=== PATIENT | female | born 1975 | race Caucasian/White ===

== ENCOUNTER 2017-06-28 14:21 | Day surgery (SDC) | payer OTHER ==
[~2017-06-28] VITALS: Ht 162.6 cm; Wt 105.3 kg
[2017-06-28 14:50] VITALS: PULSE 85; TEMP 97.9
[2017-06-28] MEDS ORDERED: AMBIEN 10MG10 MG PO (15:14)
[2017-06-28] MEDS ORDERED: TYLENOL 500MG500 MG PO (15:15)
[2017-06-28] MEDS ORDERED: OMNICEF 300MG300 MG PO (15:15)
[2017-06-28 18:46] VITALS: BP 136/90; PULSE 65; TEMP 98
[2017-06-28 19:00] VITALS: BP 128/89; PULSE 80; TEMP 98.1
[2017-06-28 19:15] VITALS: BP 131/90; PULSE 71; TEMP 97.9
[2017-06-28 19:54] VITALS: BP 147/105; PULSE 77; TEMP 98.2
== END 2017-06-28 20:31 | disposition home or self-care (01) ==
LOC: SDCO 14:21 → MEDICAL 19:36 → SDCO 20:31
DX: N20.0 Calculus of kidney (principal); G47.33 Obstructive sleep apnea (adult) (pediatric); I10 Essential (primary) hypertension; I42.9 Cardiomyopathy, unspecified; M19.90 Unspecified osteoarthritis, unspecified site; D64.9 Anemia, unspecified; N39.0 Urinary tract infection, site not specified; Z86.73 Personal history of transient ischemic attack (TIA), and cerebral infarction without residual deficits; K21.9 Gastro-esophageal reflux disease without esophagitis; Z80.8 Family history of malignant neoplasm of other organs or systems; Z88.5 Allergy status to narcotic agent; Z98.84 Bariatric surgery status; Z79.2 Long term (current) use of antibiotics; G43.909 Migraine, unspecified, not intractable, without status migrainosus; G47.00 Insomnia, unspecified
CPT/HCPCS: OP; C1769; C2617; J0690; J1100; J2405; J2704; J3010; J7030; J7120; Q9967